=== PATIENT | male | born 1945 | race Caucasian/White ===

== ENCOUNTER 2016-11-18 17:39 | Emergency (ER) | payer SELFPAY ==
[~2016-11-18] VITALS: Ht 193 cm; Wt 94.5 kg
[2016-11-18 17:42] VITALS: BP 169/83
== END 2016-11-18 19:05 | disposition home or self-care (01) ==
LOC: ED 18:59
DX: J20.8 Acute bronchitis due to other specified organisms (principal); B96.89 Other specified bacterial agents as the cause of diseases classified elsewhere
CPT/HCPCS: 71020; 99284

== ENCOUNTER 2017-03-22 17:51 | Emergency (ER) | payer BC ==
[~2017-03-22] VITALS: Ht 190.5 cm; Wt 101.7 kg
[2017-03-22] MEDS ORDERED: LISINOPRIL 20 MG TABLET ONE (18:25)
[2017-03-22] MEDS ORDERED: LISINOPRIL 20 MG TABLET PO ONE (18:30)
[2017-03-22 18:31] LABS: HEMATOCRIT 47.5 % (39.2-51.8); HEMOGLOBIN 16.1 g/dL (13.7-18.0); WHITE BLOOD COUNT 7.2 x10^3/uL (3.4-10)
[2017-03-22 18:42] LABS: BLOOD UREA NITROGEN 20 mg/dL (7-18)
[2017-03-22 19:20] VITALS: BP 197/107
== END 2017-03-22 19:22 | disposition home or self-care (01) ==
LOC: ED 19:16
DX: I10 Essential (primary) hypertension (principal)
CPT/HCPCS: 36415; 80048; 82040; 85025; 93005; 99283; 99285

== ENCOUNTER 2018-11-21 10:32 | Inpatient (IN) | payer BC ==
[~2018-11-21] VITALS: Ht 190.5 cm; Wt 94.9 kg
--- NOTE | 2018-11-21 10:55 | NUR ---
BIB [facility]. C/O "foggy head" yesterday. Woke A&Ox1 this AM. Difficulty following commands. Nibbler Operator strength and BUE strength equal, but patient otherwise unable to follow commands to perform stroke exam. EKG done. Placed on NIBP, pulse ox, and youth nutritional monitor. In afib, no hx. at bedside. Will continue to monitor.
[2018-11-21] MEDS ORDERED: AMLO-150 PO (11:24)
--- NOTE | 2018-11-21 11:45 | NUR ---
Patient repeatedly attempting to climb out of bed stating, "I need to pee." When assisted with urinal, patient does not void. Patient refusing to get into bed. RN assisted patient safely into bed.
[2018-11-21 12:00] LABS: BASOPHILS # (AUTO) 0.03 x10^3/uL (0-0.1); BASOPHILS % (AUTO) 1 % (0-1); EOSINOPHILS # (AUTO) 0.02 x10^3/uL (0-0.4); EOSINOPHILS % (AUTO) 0 % (1-7); LYMPHOCYTES # (AUTO) 1.05 x10^3/uL (1-3.4); LYMPHOCYTES % (AUTO) 17 % (22-44); MD NO; MEAN CORPUSCULAR HEMOGLOBIN 31.8 pg (27.5-34.5); MEAN CORPUSCULAR HGB CONC 33.7 g/dL (33.2-36.2); MEAN CORPUSCULAR VOLUME 94.4 fL (81-97); MEAN PLATELET VOLUME 8.5 fL (7.4-10.4); MONOCYTES # (AUTO) 0.51 x10^3/uL (0.2-0.8); MONOCYTES % (AUTO) 8 % (2-9); NEUTROPHILS # (AUTO) 4.58 x10^3/uL (1.8-6.8); NEUTROPHILS % (AUTO) 74 % (42-75); PLATELET COUNT 164 x10^3/uL (130-400); RED BLOOD COUNT 5.44 x10^6/uL (4.38-5.82); RED CELL DISTRIBUTION WIDTH 13.1 % (9.4-14.8)
[2018-11-21 12:12] LABS: INTERNATIONAL NORMALIZED RATIO 1.16 (0.93-1.1); PROTHROMBIN TIME 12.1 Seconds (9.6-11.5)
[2018-11-21] MEDS ORDERED: ZIPRASIDONE 20 MG INJ IM ONE ×2 (12:15→12:30)
[2018-11-21 12:16] LABS: FREE T4 (FREE THYROXINE) 1.44 ng/dL (0.76-1.46); TROPONIN I < 0.015 ng/mL (0.000-0.045)
--- NOTE | 2018-11-21 12:22 | NUR ---
Patient to CT.
--- NOTE | 2018-11-21 12:43 | NUR ---
Patient resting in gurney. at bedside.
[2018-11-21] MEDS ORDERED: OMNIPAQUE 350 MG/ML, 100ML BOTTLE ONE (13:42)
--- NOTE | 2018-11-21 14:02 | NUR ---
VSS. Patient shifting around in bed, but not trying to get out at this time
--- NOTE | 2018-11-21 14:42 | NUR ---
[facility] at bedside.
[2018-11-21] MEDS: SODIUM CHLORIDE 0.9% 1,000 ML IV SCH (14:58)
[2018-11-21] MEDS ORDERED: LABETALOL 5MG/ML, 20ML IVPush PRN (15:00)
[2018-11-21] MEDS ORDERED: ONDANSETRON 2MG/ML, 2ML IVPush PRN (15:00)
[2018-11-21] MEDS ORDERED: ASA/APAP/ CAFFEINE TABLET PO PRN (15:00)
[2018-11-21] MEDS ORDERED: hydrALAzine 20 MG/ML, 1ML IVPush PRN (15:00)
[2018-11-21 15:32] LABS: HCT (SEDRATE) 52.6 % (39.2-51.8)
[2018-11-21 15:42] LABS: ALANINE AMINOTRANSFERASE 26 U/L (12-78); ALBUMIN 4.3 g/dL (3.4-5.0); ANION GAP 10 mmol/L (5-15); CHLORIDE 109 mmol/L (98-107); CREATININE 0.96 mg/dL (0.7-1.3)
--- NOTE | 2018-11-21 15:45 | NUR ---
Attempting to get out of bed. RN verbally de-escalated and assisted patient back to bed.
[2018-11-21 15:47] LABS: ALKALINE PHOSPHATASE 80 U/L (45-117); BILIRUBIN,TOTAL 2.5 mg/dL (0.2-1.0); TOTAL PROTEIN 8.4 g/dL (6.4-8.2); TROPONIN I < 0.015 ng/mL (0.000-0.045)
[2018-11-21 17:14] LABS: MICROSCOPIC AUTO
[2018-11-21] MEDS: HEPARIN 5,000 UNITS/ML, 1ML SQ SCH ×2 (17:21→22:55)
[2018-11-21 17:24] LABS: AMPHETAMINE SCREEN, URINE Negative (Negative); BARBITURATE SCREEN, URINE Negative (Negative); BENZODIAZEPINE SCREEN, URINE Negative (Negative); CANNABINOID SCREEN, URINE Negative (Negative); COCAINE SCREEN, URINE Negative (Negative); METHADONE SCREEN, URINE Negative (Negative); OPIATE SCREEN, URINE Negative (Negative)
[2018-11-21 17:28] LABS: CULTURE INDICATED? YES
[2018-11-21 17:51] VITALS: BP 124/76
[2018-11-21] MEDS ORDERED: LORazepam 2 MG/ML, 1ML IVPush ONE (18:30)
[2018-11-21 21:23] VITALS: BP 158/96
[2018-11-21 21:28] LABS: TROPONIN I < 0.015 ng/mL (0.000-0.045)
[2018-11-22] MEDS: SODIUM CHLORIDE 0.9% 1,000 ML IV SCH ×3 (00:28→17:00)
[2018-11-22 00:34] VITALS: BP 133/89
[2018-11-22 03:50] LABS: BASOPHILS # (AUTO) 0.03 x10^3/uL (0-0.1); BASOPHILS % (AUTO) 0 % (0-1); EOSINOPHILS # (AUTO) 0.06 x10^3/uL (0-0.4); EOSINOPHILS % (AUTO) 1 % (1-7); LYMPHOCYTES # (AUTO) 1.34 x10^3/uL (1-3.4); LYMPHOCYTES % (AUTO) 18 % (22-44); MD NO; MEAN CORPUSCULAR HEMOGLOBIN 31.7 pg (27.5-34.5); MEAN CORPUSCULAR HGB CONC 33.4 g/dL (33.2-36.2); MEAN CORPUSCULAR VOLUME 94.9 fL (81-97); MEAN PLATELET VOLUME 8.4 fL (7.4-10.4); MONOCYTES # (AUTO) 0.77 x10^3/uL (0.2-0.8); MONOCYTES % (AUTO) 10 % (2-9); NEUTROPHILS # (AUTO) 5.32 x10^3/uL (1.8-6.8); NEUTROPHILS % (AUTO) 71 % (42-75); PLATELET COUNT 151 x10^3/uL (130-400); RED BLOOD COUNT 5.06 x10^6/uL (4.38-5.82); RED CELL DISTRIBUTION WIDTH 13.2 % (9.4-14.8)
[2018-11-22 03:55] LABS: ALANINE AMINOTRANSFERASE 25 U/L (12-78); ALBUMIN 3.8 g/dL (3.4-5.0); ANION GAP 8 mmol/L (5-15); CALCIUM 8.3 mg/dL (8.5-10.1); CHLORIDE 112 mmol/L (98-107); CREATININE 0.87 mg/dL (0.7-1.3)
[2018-11-22 03:57] LABS: ALKALINE PHOSPHATASE 74 U/L (45-117); BILIRUBIN,TOTAL 2.8 mg/dL (0.2-1.0); TOTAL PROTEIN 7.4 g/dL (6.4-8.2)
[2018-11-22 04:01] LABS: TROPONIN I < 0.015 ng/mL (0.000-0.045)
[2018-11-22] MEDS: HEPARIN 5,000 UNITS/ML, 1ML SQ SCH ×3 (06:07→22:28)
[2018-11-22 07:35] VITALS: BP 158/97
[2018-11-22] MEDS: LEVOFLOXACIN/PMX 750MG/150ML 150 ML IV SCH (08:59)
[2018-11-22] MEDS ORDERED: LORazepam 2 MG/ML, 1ML IVPush ONE (09:30)
--- NOTE | 2018-11-22 09:39 | NUR ---
REC: Regular diet with thin liquids Addendum: 11/22/18 at 0939 by Elicia SOSA Amended: Links added.
[2018-11-22] MEDS ORDERED: GADOBUTROL 10 MMOL/10 ML PFS ONE (09:55)
[2018-11-22 13:10] VITALS: BP 147/95
[2018-11-22] MEDS: METOPROLOL TARTRATE 25 MG TABLET PO SCH (16:59)
[2018-11-22 19:28] VITALS: BP 163/96
[2018-11-23 00:58] VITALS: BP 154/100
[2018-11-23] MEDS: SODIUM CHLORIDE 0.9% 1,000 ML IV SCH (01:57)
[2018-11-23 05:02] VITALS: BP 150/99
[2018-11-23] MEDS: METOPROLOL TARTRATE 25 MG TABLET PO SCH (05:04)
[2018-11-23] MEDS: HEPARIN 5,000 UNITS/ML, 1ML SQ SCH ×3 (05:18→22:01)
[2018-11-23 05:31] LABS: BASOPHILS # (AUTO) 0.05 x10^3/uL (0-0.1); BASOPHILS % (AUTO) 1 % (0-1); EOSINOPHILS # (AUTO) 0.05 x10^3/uL (0-0.4); EOSINOPHILS % (AUTO) 1 % (1-7); LYMPHOCYTES # (AUTO) 1.43 x10^3/uL (1-3.4); LYMPHOCYTES % (AUTO) 20 % (22-44); MD NO; MEAN CORPUSCULAR HGB CONC 33.4 g/dL (33.2-36.2); MEAN CORPUSCULAR VOLUME 95.7 fL (81-97); MEAN PLATELET VOLUME 8.9 fL (7.4-10.4); MONOCYTES % (AUTO) 10 % (2-9); NEUTROPHILS # (AUTO) 4.89 x10^3/uL (1.8-6.8); NEUTROPHILS % (AUTO) 69 % (42-75); PLATELET COUNT 145 x10^3/uL (130-400); RED BLOOD COUNT 4.89 x10^6/uL (4.38-5.82); RED CELL DISTRIBUTION WIDTH 13.1 % (9.4-14.8)
[2018-11-23 05:32] LABS: ALBUMIN 3.5 g/dL (3.4-5.0); ANION GAP 7 mmol/L (5-15); CALCIUM 8.5 mg/dL (8.5-10.1); CHLORIDE 108 mmol/L (98-107)
[2018-11-23 05:35] LABS: ALANINE AMINOTRANSFERASE 24 U/L (12-78); ALKALINE PHOSPHATASE 74 U/L (45-117); BILIRUBIN,TOTAL 2.8 mg/dL (0.2-1.0); CREATININE 0.86 mg/dL (0.7-1.3); TOTAL PROTEIN 7.1 g/dL (6.4-8.2)
[2018-11-23 08:09] VITALS: BP 149/109
[2018-11-23] MEDS: LEVOFLOXACIN/PMX 750MG/150ML 150 ML IV SCH (09:00)
[2018-11-23] MEDS: TAMSULOSIN 0.4 MG CAP.ER.24H PO SCH (09:00)
[2018-11-23] MEDS: AMLODIPINE 5 MG TABLET PO SCH ×2 (09:00→22:01)
[2018-11-23] MEDS: ASPIRIN 81 MG TABLET CHEW PO SCH (09:00)
[2018-11-23 12:14] VITALS: BP 149/81
[2018-11-23] MEDS ORDERED: SODIUM CHLORIDE 0.9% 1,000 ML IV SCH (14:58)
[2018-11-23] MEDS: METOPROLOL TARTRATE 50 MG TABLET PO SCH (17:31)
[2018-11-23 19:58] VITALS: BP 163/96
[2018-11-24 01:44] VITALS: BP 151/97
[2018-11-24 06:01] VITALS: BP 141/93
[2018-11-24] MEDS: METOPROLOL TARTRATE 50 MG TABLET PO SCH (06:14)
[2018-11-24] MEDS: HEPARIN 5,000 UNITS/ML, 1ML SQ SCH ×3 (06:14→23:28)
[2018-11-24 07:20] VITALS: BP 130/80
[2018-11-24] MEDS: ASPIRIN 81 MG TABLET CHEW PO SCH (08:31)
[2018-11-24] MEDS: TAMSULOSIN 0.4 MG CAP.ER.24H PO SCH (08:31)
[2018-11-24] MEDS: AMLODIPINE 5 MG TABLET PO SCH ×2 (08:31→23:28)
[2018-11-24] MEDS ORDERED: D5%-0.45% NACL 1,000 ML IV SCH (09:00)
[2018-11-24] MEDS: LEVOFLOXACIN/PMX 750MG/150ML 150 ML IV SCH (09:59)
[2018-11-24 12:04] VITALS: BP 145/90
[2018-11-24] MEDS: METOPROLOL TARTRATE 100 MG TABLET PO SCH (18:05)
[2018-11-24] MEDS: HALOPERIDOL 5 MG/ML IM PRN (18:52)
[2018-11-24 18:59] VITALS: BP 156/83
[2018-11-25 01:55] VITALS: BP 147/73
[2018-11-25] MEDS: HEPARIN 5,000 UNITS/ML, 1ML SQ SCH (05:37)
[2018-11-25] MEDS: METOPROLOL TARTRATE 100 MG TABLET PO SCH ×2 (06:24→18:17)
[2018-11-25 06:50] VITALS: BP 153/92
[2018-11-25] MEDS: LISINOPRIL 10 MG TABLET PO SCH ×2 (08:59→20:56)
[2018-11-25] MEDS: SULFAMETH./TRIMETHOPRIM DS 800MG/160MG TABLET PO SCH ×2 (08:59→20:56)
[2018-11-25] MEDS: AMLODIPINE 5 MG TABLET PO SCH ×2 (08:59→20:56)
[2018-11-25] MEDS: TAMSULOSIN 0.4 MG CAP.ER.24H PO SCH (08:59)
[2018-11-25] MEDS ORDERED: LEVOFLOXACIN 750 MG TABLET PO SCH (09:00)
[2018-11-25] MEDS: ASPIRIN 81 MG TABLET CHEW PO SCH (09:08)
[2018-11-25] MEDS ORDERED: LIDOCAINE-MPF 1%, 5ML ONE (10:16)
[2018-11-25 12:18] VITALS: BP 127/91
[2018-11-25 12:21] LABS: GLUCOSE, CSF 65 mg/dL (40-80); TOTAL PROTEIN,CSF 77 mg/dL (15-45)
[2018-11-25 20:09] VITALS: BP 121/80
[2018-11-26 03:56] VITALS: BP 125/74
[2018-11-26] MEDS: METOPROLOL TARTRATE 100 MG TABLET PO SCH ×2 (06:33→20:14)
[2018-11-26 07:38] VITALS: BP 108/69
[2018-11-26] MEDS: SULFAMETH./TRIMETHOPRIM DS 800MG/160MG TABLET PO SCH ×2 (09:59→20:14)
[2018-11-26] MEDS: LISINOPRIL 10 MG TABLET PO SCH ×2 (10:00→20:14)
[2018-11-26] MEDS: AMLODIPINE 5 MG TABLET PO SCH ×2 (10:00→20:14)
[2018-11-26] MEDS: ASPIRIN 81 MG TABLET CHEW PO SCH (10:00)
[2018-11-26] MEDS: TAMSULOSIN 0.4 MG CAP.ER.24H PO SCH (10:00)
[2018-11-26 12:27] VITALS: BP 122/79
[2018-11-26] MEDS ORDERED: DIPHENHYDRAMINE 50 MG/ML, 1ML IVPush ONE (16:00)
[2018-11-26] MEDS ORDERED: HALOPERIDOL 5 MG/ML IV ONE (16:00)
[2018-11-26 20:11] VITALS: BP 104/63
[2018-11-26] MEDS: HALOPERIDOL 5 MG/ML IM PRN (20:14)
[2018-11-27 01:28] VITALS: BP 135/87
[2018-11-27] MEDS: METOPROLOL TARTRATE 100 MG TABLET PO SCH ×2 (05:14→18:33)
[2018-11-27 05:23] LABS: BASOPHILS # (AUTO) 0.06 x10^3/uL (0-0.1); BASOPHILS % (AUTO) 1 % (0-1); EOSINOPHILS # (AUTO) 0.07 x10^3/uL (0-0.4); EOSINOPHILS % (AUTO) 1 % (1-7); LYMPHOCYTES # (AUTO) 1.23 x10^3/uL (1-3.4); LYMPHOCYTES % (AUTO) 21 % (22-44); MD NO; MEAN CORPUSCULAR HEMOGLOBIN 31.8 pg (27.5-34.5); MEAN CORPUSCULAR HGB CONC 33.4 g/dL (33.2-36.2); MEAN CORPUSCULAR VOLUME 95.3 fL (81-97); MEAN PLATELET VOLUME 8.8 fL (7.4-10.4); MONOCYTES # (AUTO) 0.52 x10^3/uL (0.2-0.8); MONOCYTES % (AUTO) 9 % (2-9); NEUTROPHILS # (AUTO) 3.99 x10^3/uL (1.8-6.8); NEUTROPHILS % (AUTO) 68 % (42-75); PLATELET COUNT 154 x10^3/uL (130-400); RED BLOOD COUNT 4.95 x10^6/uL (4.38-5.82); RED CELL DISTRIBUTION WIDTH 13.4 % (9.4-14.8)
[2018-11-27 05:35] LABS: ALANINE AMINOTRANSFERASE 35 U/L (12-78); ALBUMIN 3.6 g/dL (3.4-5.0); ANION GAP 9 mmol/L (5-15); CALCIUM 8.5 mg/dL (8.5-10.1); CHLORIDE 109 mmol/L (98-107); CREATININE 0.98 mg/dL (0.7-1.3)
[2018-11-27 05:37] LABS: ALKALINE PHOSPHATASE 82 U/L (45-117); BILIRUBIN,TOTAL 1.9 mg/dL (0.2-1.0)
[2018-11-27 07:23] VITALS: BP 133/86
[2018-11-27] MEDS: AMLODIPINE 5 MG TABLET PO SCH ×2 (09:30→19:56)
[2018-11-27] MEDS: SULFAMETH./TRIMETHOPRIM DS 800MG/160MG TABLET PO SCH ×2 (09:30→19:56)
[2018-11-27] MEDS: TAMSULOSIN 0.4 MG CAP.ER.24H PO SCH (09:30)
[2018-11-27] MEDS: LISINOPRIL 10 MG TABLET PO SCH ×2 (09:30→19:56)
[2018-11-27] MEDS: ASPIRIN 81 MG TABLET CHEW PO SCH (09:30)
[2018-11-27 13:50] VITALS: BP 135/85
[2018-11-27 19:41] VITALS: BP 136/83
[2018-11-28] VITALS (7 sets, daily range): BP systolic 107–140; BP diastolic 71–83
[2018-11-28 06:01] LABS: CHLORIDE 107 mmol/L (98-107)
[2018-11-28] MEDS: METOPROLOL TARTRATE 100 MG TABLET PO SCH ×2 (06:13→17:29)
[2018-11-28 06:14] LABS: CALCIUM 8.5 mg/dL (8.5-10.1); CREATININE 1.05 mg/dL (0.7-1.3)
[2018-11-28 06:43] LABS: ANION GAP 10 mmol/L (5-15)
[2018-11-28] MEDS: AMLODIPINE 5 MG TABLET PO SCH ×2 (09:39→21:46)
[2018-11-28] MEDS: LISINOPRIL 10 MG TABLET PO SCH ×2 (09:40→21:46)
[2018-11-28] MEDS: SULFAMETH./TRIMETHOPRIM DS 800MG/160MG TABLET PO SCH ×2 (09:40→21:46)
[2018-11-28] MEDS: ASPIRIN 81 MG TABLET CHEW PO SCH (09:40)
[2018-11-28] MEDS: TAMSULOSIN 0.4 MG CAP.ER.24H PO SCH (09:40)
[2018-11-28] MEDS: FINASTERIDE 5 MG TABLET PO SCH (09:41)
[2018-11-28] MEDS: DIPHENHYDRAMINE 25 MG CAPSULE PO SCH (20:09)
[2018-11-28] MEDS: ACETAMINOPHEN 325 MG TABLET PO SCH (20:09)
[2018-11-28] MEDS: IMMUNE GLOB (GAMUNEX) 10GM/100ML IV SCH (20:40)
[2018-11-29 00:45] VITALS: BP 128/83
[2018-11-29] MEDS: METOPROLOL TARTRATE 100 MG TABLET PO SCH ×2 (06:17→17:20)
[2018-11-29 06:23] LABS: BASOPHILS # (AUTO) 0.02 x10^3/uL (0-0.1); BASOPHILS % (AUTO) 0 % (0-1); EOSINOPHILS # (AUTO) 0.13 x10^3/uL (0-0.4); EOSINOPHILS % (AUTO) 2 % (1-7); LYMPHOCYTES # (AUTO) 0.76 x10^3/uL (1-3.4); LYMPHOCYTES % (AUTO) 14 % (22-44); MD NO; MEAN CORPUSCULAR HGB CONC 33.3 g/dL (33.2-36.2); MEAN PLATELET VOLUME 8.8 fL (7.4-10.4); MONOCYTES % (AUTO) 5 % (2-9); NEUTROPHILS # (AUTO) 4.39 x10^3/uL (1.8-6.8); NEUTROPHILS % (AUTO) 78 % (42-75); PLATELET COUNT 159 x10^3/uL (130-400); RED BLOOD COUNT 4.81 x10^6/uL (4.38-5.82); RED CELL DISTRIBUTION WIDTH 12.8 % (9.4-14.8)
[2018-11-29 06:35] LABS: CALCIUM 8.4 mg/dL (8.5-10.1); CHLORIDE 109 mmol/L (98-107)
[2018-11-29 06:41] LABS: ALANINE AMINOTRANSFERASE 33 U/L (12-78); ALBUMIN 3.4 g/dL (3.4-5.0); ALKALINE PHOSPHATASE 74 U/L (45-117); ANION GAP 8 mmol/L (5-15); BILIRUBIN,TOTAL 1.9 mg/dL (0.2-1.0); TOTAL PROTEIN 7.9 g/dL (6.4-8.2)
[2018-11-29 08:14] VITALS: BP 136/84
[2018-11-29] MEDS ORDERED: ACETAMINOPHEN 325 MG TABLET PO SCH (09:00)
[2018-11-29] MEDS ORDERED: DIPHENHYDRAMINE 25 MG CAPSULE PO SCH (09:00)
[2018-11-29] MEDS: POTASSIUM CHLORIDE 20 MEQ TAB.ER.PRT PO SCH (09:41)
[2018-11-29] MEDS: AMLODIPINE 5 MG TABLET PO SCH ×2 (09:41→21:22)
[2018-11-29] MEDS: TAMSULOSIN 0.4 MG CAP.ER.24H PO SCH (09:42)
[2018-11-29] MEDS: SULFAMETH./TRIMETHOPRIM DS 800MG/160MG TABLET PO SCH ×2 (09:42→21:22)
[2018-11-29] MEDS: FINASTERIDE 5 MG TABLET PO SCH (09:42)
[2018-11-29] MEDS: ASPIRIN 81 MG TABLET CHEW PO SCH (09:42)
[2018-11-29] MEDS: LISINOPRIL 10 MG TABLET PO SCH ×2 (09:42→21:25)
[2018-11-29 13:13] VITALS: BP 135/77
[2018-11-29 18:45] VITALS: BP 115/72
[2018-11-29] MEDS: DIPHENHYDRAMINE 25 MG CAPSULE PO SCH (20:31)
[2018-11-29] MEDS: ACETAMINOPHEN 325 MG TABLET PO SCH (20:31)
[2018-11-29 21:18] VITALS: BP 130/94
[2018-11-29] MEDS: IMMUNE GLOB (GAMUNEX) 10GM/100ML IV SCH (21:20)
[2018-11-29 21:46] VITALS: BP 137/78
[2018-11-30] VITALS (7 sets, daily range): BP systolic 100–162; BP diastolic 64–89
[2018-11-30] MEDS: METOPROLOL TARTRATE 100 MG TABLET PO SCH ×2 (06:28→18:09)
[2018-11-30] MEDS: LISINOPRIL 20 MG TABLET PO SCH ×2 (08:59→21:45)
[2018-11-30] MEDS: TAMSULOSIN 0.4 MG CAP.ER.24H PO SCH (08:59)
[2018-11-30] MEDS: SULFAMETH./TRIMETHOPRIM DS 800MG/160MG TABLET PO SCH ×2 (08:59→21:44)
[2018-11-30] MEDS: ASPIRIN 81 MG TABLET CHEW PO SCH (08:59)
[2018-11-30] MEDS: POTASSIUM CHLORIDE 20 MEQ TAB.ER.PRT PO SCH (08:59)
[2018-11-30] MEDS: AMLODIPINE 5 MG TABLET PO SCH ×2 (08:59→21:44)
[2018-11-30] MEDS: FINASTERIDE 5 MG TABLET PO SCH (09:07)
[2018-11-30] MEDS: ACETAMINOPHEN 325 MG TABLET PO SCH (20:08)
[2018-11-30] MEDS: DIPHENHYDRAMINE 25 MG CAPSULE PO SCH (20:10)
[2018-11-30] MEDS: IMMUNE GLOB (GAMUNEX) 10GM/100ML IV SCH (20:44)
[2018-12-01 00:04] VITALS: BP 122/85
[2018-12-01 05:43] VITALS: BP 125/74
[2018-12-01] MEDS: METOPROLOL TARTRATE 100 MG TABLET PO SCH ×2 (05:46→18:36)
[2018-12-01 06:53] VITALS: BP 121/80
[2018-12-01] MEDS: ENOXAPARIN 40 MG/0.4 ML SQ SCH (08:08)
[2018-12-01] MEDS: FINASTERIDE 5 MG TABLET PO SCH (08:09)
[2018-12-01] MEDS: TAMSULOSIN 0.4 MG CAP.ER.24H PO SCH (08:09)
[2018-12-01] MEDS: POTASSIUM CHLORIDE 20 MEQ TAB.ER.PRT PO SCH (08:09)
[2018-12-01] MEDS: ASPIRIN 81 MG TABLET CHEW PO SCH (08:10)
[2018-12-01] MEDS: AMLODIPINE 5 MG TABLET PO SCH ×2 (08:10→21:49)
[2018-12-01] MEDS: SULFAMETH./TRIMETHOPRIM DS 800MG/160MG TABLET PO SCH ×2 (08:10→21:49)
[2018-12-01] MEDS: LISINOPRIL 20 MG TABLET PO SCH ×2 (08:10→21:49)
[2018-12-01 12:18] VITALS: BP 114/73
[2018-12-01 18:31] VITALS: BP 106/69
[2018-12-01] MEDS ORDERED: DIPHENHYDRAMINE 25 MG CAPSULE PO SCH ×2 (20:00)
[2018-12-01] MEDS: ACETAMINOPHEN 325 MG TABLET PO SCH (20:43)
[2018-12-01] MEDS: IMMUNE GLOB (GAMUNEX) 10GM/100ML IV SCH (21:39)
[2018-12-01 21:40] VITALS: BP 128/63
[2018-12-01] MEDS: ATORVASTATIN 40 MG TABLET PO SCH (21:48)
[2018-12-02] VITALS (7 sets, daily range): BP systolic 85–118; BP diastolic 47–71
[2018-12-02 05:24] LABS: BASOPHILS # (AUTO) 0.05 x10^3/uL (0-0.1); BASOPHILS % (AUTO) 1 % (0-1); EOSINOPHILS # (AUTO) 0.13 x10^3/uL (0-0.4); EOSINOPHILS % (AUTO) 2 % (1-7); LYMPHOCYTES # (AUTO) 1.05 x10^3/uL (1-3.4); LYMPHOCYTES % (AUTO) 18 % (22-44); MD NO; MEAN CORPUSCULAR HGB CONC 33.9 g/dL (33.2-36.2); MEAN CORPUSCULAR VOLUME 94.5 fL (81-97); MONOCYTES # (AUTO) 0.65 x10^3/uL (0.2-0.8); MONOCYTES % (AUTO) 11 % (2-9); NEUTROPHILS # (AUTO) 4.09 x10^3/uL (1.8-6.8); NEUTROPHILS % (AUTO) 69 % (42-75); PLATELET COUNT 177 x10^3/uL (130-400); RED BLOOD COUNT 4.35 x10^6/uL (4.38-5.82); RED CELL DISTRIBUTION WIDTH 13.2 % (9.4-14.8)
[2018-12-02 05:31] LABS: CHLORIDE 104 mmol/L (98-107)
[2018-12-02 05:38] LABS: ALANINE AMINOTRANSFERASE 25 U/L (12-78); ALBUMIN 3.2 g/dL (3.4-5.0); ALKALINE PHOSPHATASE 59 U/L (45-117); ANION GAP 6 mmol/L (5-15); BILIRUBIN,TOTAL 2.2 mg/dL (0.2-1.0); CALCIUM 8.7 mg/dL (8.5-10.1); CREATININE 1.13 mg/dL (0.7-1.3); TOTAL PROTEIN 8.6 g/dL (6.4-8.2)
[2018-12-02] MEDS: METOPROLOL TARTRATE 100 MG TABLET PO SCH ×2 (05:57→18:42)
[2018-12-02] MEDS: POTASSIUM CHLORIDE 20 MEQ TAB.ER.PRT PO SCH (09:08)
[2018-12-02] MEDS: TAMSULOSIN 0.4 MG CAP.ER.24H PO SCH (09:09)
[2018-12-02] MEDS: LISINOPRIL 20 MG TABLET PO SCH ×2 (09:09→21:00)
[2018-12-02] MEDS: ASPIRIN 81 MG TABLET CHEW PO SCH (09:09)
[2018-12-02] MEDS: ENOXAPARIN 40 MG/0.4 ML SQ SCH (09:09)
[2018-12-02] MEDS: AMLODIPINE 5 MG TABLET PO SCH ×2 (09:10→21:00)
[2018-12-02] MEDS: SULFAMETH./TRIMETHOPRIM DS 800MG/160MG TABLET PO SCH ×2 (09:10→21:15)
[2018-12-02] MEDS: FINASTERIDE 5 MG TABLET PO SCH (09:15)
[2018-12-02] MEDS: ACETAMINOPHEN 325 MG TABLET PO SCH (21:15)
[2018-12-02] MEDS: ATORVASTATIN 40 MG TABLET PO SCH (21:15)
[2018-12-02] MEDS: IMMUNE GLOB (GAMUNEX) 10GM/100ML IV SCH (22:42)
[2018-12-03 00:09] VITALS: BP 103/70
[2018-12-03] MEDS: METOPROLOL TARTRATE 100 MG TABLET PO SCH ×2 (05:48→16:54)
[2018-12-03 07:00] VITALS: BP 117/69
[2018-12-03 08:20] LABS: CHLORIDE 107 mmol/L (98-107)
[2018-12-03 08:24] LABS: BASOPHILS # (AUTO) 0.06 x10^3/uL (0-0.1); BASOPHILS % (AUTO) 1 % (0-1); EOSINOPHILS # (AUTO) 0.11 x10^3/uL (0-0.4); EOSINOPHILS % (AUTO) 1 % (1-7); LYMPHOCYTES # (AUTO) 0.62 x10^3/uL (1-3.4); LYMPHOCYTES % (AUTO) 7 % (22-44); MD NO; MEAN CORPUSCULAR HEMOGLOBIN 32.1 pg (27.5-34.5); MEAN CORPUSCULAR HGB CONC 34.7 g/dL (33.2-36.2); MEAN CORPUSCULAR VOLUME 92.5 fL (81-97); MEAN PLATELET VOLUME 8.3 fL (7.4-10.4); MONOCYTES # (AUTO) 0.74 x10^3/uL (0.2-0.8); MONOCYTES % (AUTO) 9 % (2-9); NEUTROPHILS # (AUTO) 7.07 x10^3/uL (1.8-6.8); NEUTROPHILS % (AUTO) 82 % (42-75); PLATELET COUNT 164 x10^3/uL (130-400); RED BLOOD COUNT 4.14 x10^6/uL (4.38-5.82)
[2018-12-03 08:25] LABS: ALANINE AMINOTRANSFERASE 22 U/L (12-78); ALBUMIN 3.1 g/dL (3.4-5.0); ALKALINE PHOSPHATASE 66 U/L (45-117); ANION GAP 5 mmol/L (5-15); BILIRUBIN,TOTAL 2.4 mg/dL (0.2-1.0); CALCIUM 8.5 mg/dL (8.5-10.1); CREATININE 1.15 mg/dL (0.7-1.3); TOTAL PROTEIN 8.9 g/dL (6.4-8.2)
[2018-12-03] MEDS: LISINOPRIL 10 MG TABLET PO SCH ×2 (10:18→21:34)
[2018-12-03] MEDS: FINASTERIDE 5 MG TABLET PO SCH (10:18)
[2018-12-03] MEDS: APIXABAN 5 MG TABLET PO SCH ×2 (10:18→21:34)
[2018-12-03] MEDS: TAMSULOSIN 0.4 MG CAP.ER.24H PO SCH (10:18)
[2018-12-03] MEDS: POTASSIUM CHLORIDE 20 MEQ TAB.ER.PRT PO SCH (10:18)
[2018-12-03] MEDS: SULFAMETH./TRIMETHOPRIM DS 800MG/160MG TABLET PO SCH ×2 (10:18→21:34)
[2018-12-03 16:39] VITALS: BP 126/74
[2018-12-03 18:43] VITALS: BP 114/68
[2018-12-03 21:31] VITALS: BP 126/67
[2018-12-03] MEDS: ATORVASTATIN 40 MG TABLET PO SCH (21:34)
[2018-12-04 01:15] VITALS: BP 104/56
[2018-12-04 05:46] VITALS: BP 111/72
[2018-12-04] MEDS: METOPROLOL TARTRATE 100 MG TABLET PO SCH ×2 (05:47→18:52)
[2018-12-04 05:51] LABS: ANION GAP 6 mmol/L (5-15); CALCIUM 8.3 mg/dL (8.5-10.1); CHLORIDE 103 mmol/L (98-107)
[2018-12-04 05:53] LABS: ALANINE AMINOTRANSFERASE 21 U/L (12-78); ALKALINE PHOSPHATASE 71 U/L (45-117); BILIRUBIN,TOTAL 2.4 mg/dL (0.2-1.0); CREATININE 1.04 mg/dL (0.7-1.3); TOTAL PROTEIN 8.3 g/dL (6.4-8.2)
[2018-12-04 06:03] LABS: BASOPHILS # (AUTO) 0.04 x10^3/uL (0-0.1); BASOPHILS % (AUTO) 0 % (0-1); EOSINOPHILS # (AUTO) 0.09 x10^3/uL (0-0.4); EOSINOPHILS % (AUTO) 1 % (1-7); LYMPHOCYTES # (AUTO) 0.79 x10^3/uL (1-3.4); LYMPHOCYTES % (AUTO) 9 % (22-44); MD NO; MEAN CORPUSCULAR HGB CONC 34.3 g/dL (33.2-36.2); MEAN CORPUSCULAR VOLUME 93.2 fL (81-97); MEAN PLATELET VOLUME 8.8 fL (7.4-10.4); MONOCYTES # (AUTO) 0.93 x10^3/uL (0.2-0.8); MONOCYTES % (AUTO) 10 % (2-9); NEUTROPHILS # (AUTO) 7.13 x10^3/uL (1.8-6.8); NEUTROPHILS % (AUTO) 79 % (42-75); PLATELET COUNT 149 x10^3/uL (130-400); RED BLOOD COUNT 4.16 x10^6/uL (4.38-5.82); RED CELL DISTRIBUTION WIDTH 12.5 % (9.4-14.8)
[2018-12-04 09:11] VITALS: BP 108/69
[2018-12-04] MEDS: FINASTERIDE 5 MG TABLET PO SCH (09:23)
[2018-12-04] MEDS: TAMSULOSIN 0.4 MG CAP.ER.24H PO SCH (09:23)
[2018-12-04] MEDS: APIXABAN 5 MG TABLET PO SCH ×2 (09:23→21:34)
[2018-12-04] MEDS: SULFAMETH./TRIMETHOPRIM DS 800MG/160MG TABLET PO SCH ×2 (09:23→21:33)
[2018-12-04] MEDS: POTASSIUM CHLORIDE 20 MEQ TAB.ER.PRT PO SCH (09:23)
[2018-12-04] MEDS: LISINOPRIL 10 MG TABLET PO SCH ×2 (09:24→21:34)
[2018-12-04] MEDS ORDERED: FINA5TAB4 PO (11:10)
[2018-12-04] MEDS ORDERED: APIX5TAB PO (11:10)
[2018-12-04] MEDS ORDERED: ATOR40TA78 PO (11:10)
[2018-12-04] MEDS ORDERED: METO-99 PO (11:10)
[2018-12-04] MEDS ORDERED: TAMS-11 PO (11:10)
[2018-12-04] MEDS ORDERED: LISI-167 PO (11:10)
[2018-12-04] MEDS ORDERED: SULF-169 PO (11:10)
[2018-12-04 11:57] LABS: MICROSCOPIC INDICATED
[2018-12-04 11:59] LABS: CULTURE INDICATED? YES
[2018-12-04 13:00] VITALS: BP 99/66
[2018-12-04 18:50] VITALS: BP 112/67
[2018-12-04 21:32] VITALS: BP 107/65
[2018-12-04] MEDS: ATORVASTATIN 40 MG TABLET PO SCH (21:33)
[2018-12-05 02:47] VITALS: BP 108/68
[2018-12-05 05:52] VITALS: BP 117/68
[2018-12-05] MEDS: METOPROLOL TARTRATE 100 MG TABLET PO SCH (05:53)
[2018-12-05] MEDS: FINASTERIDE 5 MG TABLET PO SCH (09:12)
[2018-12-05] MEDS: TAMSULOSIN 0.4 MG CAP.ER.24H PO SCH (09:12)
[2018-12-05] MEDS: LISINOPRIL 10 MG TABLET PO SCH (09:12)
[2018-12-05] MEDS: APIXABAN 5 MG TABLET PO SCH (09:12)
[2018-12-05] MEDS: SULFAMETH./TRIMETHOPRIM DS 800MG/160MG TABLET PO SCH (09:12)
[2018-12-05] MEDS: POTASSIUM CHLORIDE 20 MEQ TAB.ER.PRT PO SCH (09:12)
[2018-12-05 09:45] VITALS: BP 106/74
[2018-12-05 13:00] VITALS: BP 100/60
== END 2018-12-05 13:58 | disposition home health service (06) | DRG 97 ==
LOC: ED 13:39 → EDIP 13:52 → 5SO 16:29
PROVIDERS: ADMIT Internal Medicine; ATTEND Internal Medicine
PROC: 009U3ZX Drainage of Spinal Canal, Percutaneous Approach, Diagnostic (ICD-10-PCS; 2018-11-25)
PROC: B01B1ZZ Fluoroscopy of Spinal Cord using Low Osmolar Contrast (ICD-10-PCS; 2018-11-25)
PROC: 0T9B70Z Drainage of Bladder with Drainage Device, Via Natural or Artificial Opening (ICD-10-PCS; principal; 2018-12-04)
DX: G04.81 Other encephalitis and encephalomyelitis (principal); G93.41 Metabolic encephalopathy; D68.69 Other thrombophilia; N39.0 Urinary tract infection, site not specified; B95.7 Other staphylococcus as the cause of diseases classified elsewhere; D64.9 Anemia, unspecified; E87.6 Hypokalemia; Z88.0 Allergy status to penicillin; Z91.018 Allergy to other foods; I10 Essential (primary) hypertension; I48.91 Unspecified atrial fibrillation; I49.5 Sick sinus syndrome; Z66 Do not resuscitate; Z86.73 Personal history of transient ischemic attack (TIA), and cerebral infarction without residual deficits; Z87.891 Personal history of nicotine dependence
CPT/HCPCS: 36415; 70450; 70496; 70498; 70553; 71045; 77003; 80047; 80048; 80053; 80307; 81001; 82140; 82607; 82945; 82962; 83519; 83735; 84100; 84157; 84439; 84443; 84484; 85025; 85610; 85651; 85730; 86255; 86341; 87070; 87077; 87086; 87184; 87186; 87205; 87529; 89051; 93005; 93306; 95819; 96372; 99285; A9585; G0378; J1561; J1644; J1650; J1956; J3486; Q9967; 92522-GN; J1200; J1630; J2060; J7030; Q0163

== ENCOUNTER 2019-04-09 08:59 | Day surgery (SDC) | payer BC ==
[~2019-04-09] VITALS: Ht 190.5 cm; Wt 92.8 kg
[~2019-04-09 08:59] MED LIST: AMLO-150 PO; AMLO10TA8 PO; APIX5TAB PO; ATOR40TA78 PO; FINA5TAB4 PO; LISI-167 PO; METO-93 PO; METO-95 PO; METO-99 PO; NITR100C PO; SULF-169 PO; SULF1TAB23 PO; TAMS-11 PO
[2019-04-09 09:49] VITALS: BP 180/89
[2019-04-09] MEDS ORDERED: LACTATED RINGERS 1,000 ML IV SCH (09:52)
[2019-04-09] MEDS ORDERED: BUPIVACAINE/PF 0.5% ONE (10:40)
[2019-04-09] MEDS ORDERED: EPINEPHRINE 1 MG/ML, 1ML ONE (10:41)
[2019-04-09] MEDS ORDERED: MIDAZOLAM 1 MG/ML, 2ML ONE (11:47)
[2019-04-09] MEDS ORDERED: FENTANYL PF 250 MCG/5ML ONE (11:47)
[2019-04-09] MEDS ORDERED: ONDANSETRON 2MG/ML, 2ML ONE (11:56)
[2019-04-09] MEDS ORDERED: GLYCOPYRROLATE 0.2MG/1ML, 5ML ONE (11:56)
[2019-04-09] MEDS ORDERED: NEOSTIGMINE 1 MG/ML, 10ML ONE (11:56)
[2019-04-09] MEDS ORDERED: SUCCINYLCHOLINE 20 MG/ML, 10ML ONE (12:03)
[2019-04-09] MEDS ORDERED: DEXAMETHASONE 4 MG/ML, 1ML ONE ×2 (12:03→12:04)
[2019-04-09] MEDS ORDERED: PROPOFOL 10 MG/ML, 20ML ONE (12:03)
[2019-04-09] MEDS ORDERED: ROCURONIUM 10MG/ML,5ML ONE (12:03)
[2019-04-09] MEDS ORDERED: CEFAZOLIN 1,000 MG ONE ×2 (12:04)
[2019-04-09] MEDS ORDERED: MEPERIDINE/PF 25MG/ML,1ML IVPush PRN (12:30)
[2019-04-09] MEDS ORDERED: ONDANSETRON ODT 8 MG PO PRN (12:30)
[2019-04-09] MEDS ORDERED: PROMETHAZINE 25 MG/ML, 1ML IV PRN (12:30)
[2019-04-09] MEDS ORDERED: HALOPERIDOL 5 MG/ML IV PRN (12:30)
[2019-04-09] MEDS ORDERED: MIDAZOLAM 1 MG/ML, 2ML IV PRN (12:30)
[2019-04-09] MEDS ORDERED: PROMETHAZINE 12.5 MG SUPP PR PRN (12:30)
[2019-04-09] MEDS ORDERED: hydrALAzine 20 MG/ML, 1ML IV PRN (12:30)
[2019-04-09] MEDS ORDERED: OXYcodone 5 MG/5 ML ORAL.SOL UDC PO PRN ×2 (12:30→13:30)
[2019-04-09] MEDS ORDERED: HYDROmorphone 2 MG/ML, 1ML IVPush PRN ×2 (12:30→13:30)
[2019-04-09] MEDS ORDERED: LABETALOL 5MG/ML, 20ML IV PRN (12:30)
[2019-04-09] MEDS ORDERED: DIAZEPAM 5 MG/ML, 2ML IVPush PRN (12:30)
[2019-04-09] MEDS ORDERED: EPHEDRINE 50 MG/ML, 1ML IVPush PRN (12:30)
[2019-04-09] MEDS ORDERED: ALBUTEROL SULFATE 2.5 MG/3 ML NPPB PRN (12:30)
[2019-04-09] MEDS ORDERED: ONDANSETRON 2MG/ML, 2ML IV PRN (12:30)
[2019-04-09] MEDS: FENTANYL PF 100 MCG/2ML IV PRN ×2 (13:07→13:17)
[2019-04-09] MEDS ORDERED: HYDROmorphone 1 MG/ML, 1ML VIAL ONE (13:13)
[2019-04-09] MEDS ORDERED: FENTANYL PF 100 MCG/2ML ONE (13:13)
[2019-04-09] MEDS ORDERED: OXYcodone 5 MG/5 ML ORAL.SOL UDC ONE (13:13)
== END 2019-04-09 15:15 | disposition home or self-care (01) ==
LOC: OUT 08:59
PROVIDERS: ATTEND Surgery
DX: K40.90 Unilateral inguinal hernia, without obstruction or gangrene, not specified as recurrent (principal); I48.0 Paroxysmal atrial fibrillation; I10 Essential (primary) hypertension; E78.00 Pure hypercholesterolemia, unspecified; Z79.01 Long term (current) use of anticoagulants; Z79.899 Other long term (current) drug therapy; Z88.0 Allergy status to penicillin; Z88.8 Allergy status to other drugs, medicaments and biological substances; Z98.890 Other specified postprocedural states
CPT/HCPCS: 49650; C1781; J0330; J0690; J1100; J2250; J2405; J2704; J2710; J3010; J7120; S2900; J0171

== ENCOUNTER → 2020-09-21 | Outpatient (CLI) | payer BC ==
[~2020-09-21] MED LIST changes: +AMLO-211 PO; -AMLO10TA8 PO
== END | disposition home or self-care (01) ==
LOC: CFH 15:58
PROVIDERS: ATTEND Physician Assistant Medical
DX: I08.8 Other rheumatic multiple valve diseases (principal); I11.9 Hypertensive heart disease without heart failure; I48.0 Paroxysmal atrial fibrillation
CPT/HCPCS: 93306

== ENCOUNTER 2020-10-08 06:02 | Day surgery (SDC) | payer BC ==
[~2020-10-08] VITALS: Ht 190.5 cm; Wt 94.1 kg
[2020-10-08 06:27] VITALS: BP 150/95
[2020-10-08] MEDS ORDERED: APIX5TAB PO (06:33)
[2020-10-08 07:06] LABS: ANION GAP 5 mmol/L (5-15); CALCIUM 8.6 mg/dL (8.5-10.1); CHLORIDE 108 mmol/L (98-107); CREATININE 0.94 mg/dL (0.7-1.3)
[2020-10-08] MEDS ORDERED: PROPOFOL 10 MG/ML, 20ML ONE (09:49)
== END 2020-10-08 08:46 | disposition home or self-care (01) ==
LOC: CACL 06:02
PROVIDERS: ATTEND Internal Medicine Cardiovascular Disease
DX: I48.0 Paroxysmal atrial fibrillation (principal); I10 Essential (primary) hypertension; E78.5 Hyperlipidemia, unspecified; Z79.01 Long term (current) use of anticoagulants; Z79.899 Other long term (current) drug therapy; Z88.0 Allergy status to penicillin; Z88.8 Allergy status to other drugs, medicaments and biological substances
CPT/HCPCS: 36415; 80048; 92960; 93005; J2704